=== PATIENT | female | born 1950 | race Caucasian/White ===

== ENCOUNTER 2022-11-07 22:42 | Inpatient (IN) | payer MEDICARE, OTHER ==
[2022-11-07 23:10] LABS: #Lymphocytes 1.1 thou/uL (1.20-3.40); #Monocytes 1.3 thou/uL (0.11-0.59); #Neutrophils 6.6 thou/uL (1.40-6.50); %Monocytes 14.3 % (0.0-10.0); %Neutrophils 73.7 % (42.0-75.0); Hemoglobin 14.8 g/dL (12.0-16.0); Mean Corpuscular HGB CONC 33.6 g/dL (32.0-36.0); Mean Corpuscular Hemoglobin 31.6 pg (27.0-31.0); Mean Corpuscular Volume 94.2 fl (78.0-98.0); Mean Platelet Volume 8.6 fL (7.4-10.4); Platelet Count 190 10x3/uL (130-400); RBC Distribution Width 13.7 % (11.5-14.5); Red Blood Cell (RBC) Count 4.67 mill/uL (4.20-5.40)
[2022-11-07] MEDS ORDERED: Ipratropium/Albuterol 3 ML NEB ONE (23:20)
[2022-11-07] MEDS ORDERED: Dexamethasone 10 MG/ML VIAL ONE (23:26)
[2022-11-07 23:33] LABS: ALT (SGPT) 14 U/L (8-55); AST (SGOT) 28 U/L (5-34); Albumin 3.8 g/dL (3.4-4.8); Alkaline Phosphatase 114 U/L (40-110); Anion Gap 22 mmol/L (10-20); BUN (Urea Nitrogen) 55 mg/dL (9.8-20.1); Bilirubin, Total 0.3 mg/dL (0.2-1.2); Calc. Creatinine Clearance 0 mL/min (70-130); Calcium 10.2 mg/dL (7.8-10.44); Carbon Dioxide 13 mmol/L (23-31); Chloride 102 mmol/L (98-107); Estimated GFR 50; Globulin 3.7 g/dL (2.4-3.5); Glucose 198 mg/dL (83-110); Potassium 4.3 mmol/L (3.5-5.1); Protein, Total 7.5 g/dL (5.8-8.1); Sodium 133 mmol/L (136-145)
[2022-11-08 00:14] LABS: SARS-CoV-2 NAA Rapid Test Not Detected (NotDetected)
[2022-11-08] MEDS ORDERED: cefTRIAXone\\ROCEPHIN 1 GM VIAL ONE (02:03)
[2022-11-08] MEDS: guaiFENesin ER 600 MG TAB PO SCH (02:06)
[2022-11-08] MEDS ORDERED: Ondansetron ODT 4 MG TAB SL PRN (02:15)
[2022-11-08] MEDS ORDERED: Ondansetron PF 4 MG/2 ML Vial IVP PRN (02:15)
[2022-11-08] MEDS ORDERED: Acetaminophen 325 MG TAB PO PRN (02:15)
[2022-11-08] MEDS ORDERED: Azithromycin 500 MG VIAL ONE (02:36)
[2022-11-08] MEDS ORDERED: Ipratropium/Albuterol 3 ML NEB NEB PRN (02:36)
[2022-11-08] MEDS ORDERED: Azithromycin 500 MG in Sodium Chloride 0.9% 250 ML 250 ML IVPB SCH (03:00)
[2022-11-08 03:39] LABS: Lactic Acid 1.4 mmol/L (0.5-2.2)
[2022-11-08] MEDS ORDERED: Dextrose 5% in Water 1,000 ML IV PRN (05:09)
[2022-11-08] MEDS ORDERED: HumaLOG 300 UNITS/3 ML VIAL SC PRN ×3 (05:09→11:30)
[2022-11-08] MEDS ORDERED: Dextrose 50% Abboject 50 ML SYRINGE SLOW IVP PRN (05:09)
[2022-11-08] MEDS ORDERED: Diltiazem 125 MG/25 ML ONE (05:43)
[2022-11-08] MEDS ORDERED: Metoprolol Tartrate 5 MG/5 ML VIAL ONE ×3 (05:45→06:24)
[2022-11-08] MEDS ORDERED: Metoprolol Tartrate 5 MG/5 ML VIAL IVP PRN (05:45)
[2022-11-08] MEDS ORDERED: Digoxin 0.5 MG/2 ML AMP ONE (05:53)
[2022-11-08] MEDS ORDERED: Digoxin 0.5 MG/2 ML AMP SLOW IVP SCH ×4 (05:55→06:02)
[2022-11-08] MEDS: Metoprolol Tartrate 5 MG/5 ML VIAL IVP PRN ×2 (06:05→06:15)
[2022-11-08 07:32] LABS: Troponin I Less than 0.010 ng/mL (< 0.028)
[2022-11-08 08:25] LABS: Hemoglobin 14.8 g/dL (12.0-16.0); Mean Corpuscular HGB CONC 33.4 g/dL (32.0-36.0); Mean Corpuscular Hemoglobin 32.5 pg (27.0-31.0); Mean Corpuscular Volume 97.4 fl (78.0-98.0); Platelet Count 207 10x3/uL (130-400); RBC Distribution Width 14.3 % (11.5-14.5); Red Blood Cell (RBC) Count 4.56 mill/uL (4.20-5.40); White Blood Cell (WBC) Count 13.1 10x3/uL (4.8-10.8)
[2022-11-08 08:49] LABS: BUN (Urea Nitrogen) 58 mg/dL (9.8-20.1); Calc. Creatinine Clearance 0 mL/min (70-130); Calcium 9.4 mg/dL (7.8-10.44); Chloride 105 mmol/L (98-107); Estimated GFR 43; Glucose 338 mg/dL (83-110); Magnesium 3.1 mg/dL (1.6-2.6); Potassium 5.4 mmol/L (3.5-5.1); Sodium 135 mmol/L (136-145)
[2022-11-08 08:49] LABS: Band 42 % (5-11); Lymphocytes 9 % (21-51); MDiff Complete? YES; Metamyelocyte 1 % (0-0); Monocytes 6 % (0-10); Myelocyte 3 % (0-0); Neutrophil 39 % (42-75); Platelet Morphology Comment Appears Adequate; RBC Morphology Normal
[2022-11-08 08:53] LABS: Carbon Dioxide Less than 8 mmol/L (23-31)
[2022-11-08] MEDS ORDERED: methylPREDNISolone Sod Succ 40 MG VIAL ONE (08:59)
[2022-11-08] MEDS ORDERED: HumaLOG 300 UNITS/3 ML VIAL ONE (08:59)
[2022-11-08] MEDS: methylPREDNISolone Sod Succ 40 MG VIAL IVP SCH (09:35)
[2022-11-08] MEDS ORDERED: Iopamidol-370 76% 500 ML 1 ML ONE (09:44)
[2022-11-08] MEDS ORDERED: Sodium Chloride 0.9% 1,000 ML IV SCH (10:15)
[2022-11-08] MEDS: HumaLOG 300 UNITS/3 ML VIAL SC PRN ×4 (13:05→23:16)
[2022-11-08] MEDS: Sodium Chloride 0.9% 1,000 ML IV SCH ×2 (14:03→23:44)
[2022-11-08 15:18] LABS: Anion Gap 21 mmol/L (10-20); BUN (Urea Nitrogen) 52 mg/dL (9.8-20.1); Calc. Creatinine Clearance 0 mL/min (70-130); Calcium 9.6 mg/dL (7.8-10.44); Carbon Dioxide 10 mmol/L (23-31); Chloride 108 mmol/L (98-107); Estimated GFR 44; Glucose 321 mg/dL (83-110); Potassium 4.5 mmol/L (3.5-5.1); Sodium 134 mmol/L (136-145)
[2022-11-08 15:43] VITALS: BMI 29.9
[2022-11-08 18:28] LABS: Anion Gap 17 mmol/L (10-20); BUN (Urea Nitrogen) 45 mg/dL (9.8-20.1); Calc. Creatinine Clearance 60 mL/min (70-130); Calcium 9.3 mg/dL (7.8-10.44); Carbon Dioxide 12 mmol/L (23-31); Chloride 114 mmol/L (98-107); Estimated GFR 65; Glucose 156 mg/dL (83-110); Potassium 4.2 mmol/L (3.5-5.1); Sodium 139 mmol/L (136-145)
[2022-11-08] MEDS: Guaifenesin DM 100-10/5 ML UDCUP PO PRN (21:26)
[2022-11-08 21:33] LABS: Anion Gap 18 mmol/L (10-20); BUN (Urea Nitrogen) 41 mg/dL (9.8-20.1); Calc. Creatinine Clearance 57 mL/min (70-130); Calcium 9.3 mg/dL (7.8-10.44); Carbon Dioxide 10 mmol/L (23-31); Chloride 112 mmol/L (98-107); Estimated GFR 61; Glucose 225 mg/dL (83-110); Potassium 4.3 mmol/L (3.5-5.1); Sodium 136 mmol/L (136-145)
[2022-11-08] MEDS ORDERED: Sodium Chloride 0.9% 1,000 ML IV PRN ×4 (22:33)
[2022-11-08] MEDS ORDERED: NS 0.9% w/ 20 MEQ KCL 1,000 ML IV PRN ×2 (22:33)
[2022-11-08] MEDS ORDERED: Dextrose 5 %-0.45 % NaCl 1,000 ML IV PRN (22:33)
[2022-11-08] MEDS ORDERED: Electrolyte Replacement Protocol 1 EACH IVPB PRN (22:33)
[2022-11-08] MEDS ORDERED: HUMULIN R 100 UNITS in Sodium Chloride 0.9% 100 ML IVPB SCH (22:45)
[2022-11-08] MEDS: Ipratropium/Albuterol 3 ML NEB NEB PRN (23:32)
[2022-11-08] MEDS: D5 1/2 NS w/20 mEq KCL 1,000 ML IV PRN (23:44)
[2022-11-08 23:48] LABS: Glucose 210 mg/dL (83-110)
[2022-11-08 23:52] LABS: Anion Gap 17 mmol/L (10-20); BUN (Urea Nitrogen) 38 mg/dL (9.8-20.1); Calc. Creatinine Clearance 67 mL/min (70-130); Calcium 8.9 mg/dL (7.8-10.44); Carbon Dioxide 14 mmol/L (23-31); Chloride 111 mmol/L (98-107); Estimated GFR 73; Glucose 211 mg/dL (83-110); Sodium 138 mmol/L (136-145)
[2022-11-09] MEDS ORDERED: cefTRIAXone\\ROCEPHIN 1 GM in Sodium Chloride 0.9% 100 ML IVPB SCH (02:00)
[2022-11-09] MEDS: D5 1/2 NS w/20 mEq KCL 1,000 ML IV PRN (03:49)
[2022-11-09] MEDS: Guaifenesin DM 100-10/5 ML UDCUP PO PRN ×3 (03:51→17:58)
[2022-11-09 04:45] LABS: Anion Gap 14 mmol/L (10-20); BUN (Urea Nitrogen) 27 mg/dL (9.8-20.1); Calc. Creatinine Clearance 74 mL/min (70-130); Calcium 8.4 mg/dL (7.8-10.44); Carbon Dioxide 17 mmol/L (23-31); Chloride 112 mmol/L (98-107); Estimated GFR 84; Glucose 214 mg/dL (83-110); Potassium 3.5 mmol/L (3.5-5.1); Sodium 139 mmol/L (136-145)
[2022-11-09 04:50] LABS: Anion Gap 15 mmol/L (10-20); BUN (Urea Nitrogen) 27 mg/dL (9.8-20.1); Calc. Creatinine Clearance 74 mL/min (70-130); Calcium 8.4 mg/dL (7.8-10.44); Carbon Dioxide 15 mmol/L (23-31); Chloride 113 mmol/L (98-107); Estimated GFR 84; Glucose 214 mg/dL (83-110); Potassium 3.6 mmol/L (3.5-5.1); Sodium 139 mmol/L (136-145)
[2022-11-09 07:08] LABS: Anion Gap 11 mmol/L (10-20); BUN (Urea Nitrogen) 23 mg/dL (9.8-20.1); Calc. Creatinine Clearance 82 mL/min (70-130); Calcium 8.3 mg/dL (7.8-10.44); Carbon Dioxide 18 mmol/L (23-31); Chloride 114 mmol/L (98-107); Estimated GFR 91; Glucose 193 mg/dL (83-110); Potassium 3.5 mmol/L (3.5-5.1); Sodium 139 mmol/L (136-145)
[2022-11-09] MEDS: Sodium Chloride 0.9% 1,000 ML IV SCH (07:30)
[2022-11-09] MEDS: Ipratropium/Albuterol 3 ML NEB NEB PRN ×2 (08:04→12:43)
[2022-11-09] MEDS ORDERED: FLU VACC QS2022-23(65YR UP)/PF 240 MCG/0.7 ML SYRINGE IM ONE (09:00)
[2022-11-09] MEDS ORDERED: Potassium Chloride 20 MEQ TAB PO SCH (09:00)
[2022-11-09] MEDS ORDERED: HumaLOG 300 UNITS/3 ML VIAL SC PRN (09:28)
[2022-11-09] MEDS ORDERED: Dextrose 50% Abboject 50 ML SYRINGE SLOW IVP PRN (09:28)
[2022-11-09] MEDS ORDERED: Dextrose 5% in Water 1,000 ML IV PRN (09:28)
[2022-11-09] MEDS: methylPREDNISolone Sod Succ 40 MG VIAL IVP SCH (09:28)
[2022-11-09] MEDS ORDERED: Insulin Glargine 30 UNITS/0.3 ML VIAL SC SCH (09:45)
[2022-11-09] MEDS: guaiFENesin ER 600 MG TAB PO SCH (10:35)
[2022-11-09] MEDS ORDERED: guaiFENesin/DM ER PO SCH (10:45)
[2022-11-09] MEDS ORDERED: Benzonatate 100 MG CAP PO PRN (12:56)
[2022-11-09] MEDS: HumaLOG 300 UNITS/3 ML VIAL SC PRN ×2 (17:59→21:41)
[2022-11-09] MEDS ORDERED: Ipratropium/Albuterol 3 ML NEB NEB PRN (20:00)
[2022-11-09] MEDS: guaiFENesin/DM ER PO SCH (21:39)
[2022-11-09] MEDS: Atorvastatin Calcium 10 MG TAB PO SCH (21:39)
[2022-11-09] MEDS: cefTRIAXone\\ROCEPHIN 1 GM in Sodium Chloride 0.9% 100 ML IVPB SCH (21:39)
[2022-11-09] MEDS: Insulin Glargine 30 UNITS/0.3 ML VIAL SC SCH (21:40)
[2022-11-09] MEDS: Ipratropium/Albuterol 3 ML NEB NEB SCH (23:52)
[2022-11-10 03:48] LABS: Anion Gap 15 mmol/L (10-20); BUN (Urea Nitrogen) 15 mg/dL (9.8-20.1); Calc. Creatinine Clearance 91 mL/min (70-130); Calcium 8.9 mg/dL (7.8-10.44); Carbon Dioxide 17 mmol/L (23-31); Chloride 112 mmol/L (98-107); Estimated GFR 94; Glucose 172 mg/dL (83-110); Potassium 4.4 mmol/L (3.5-5.1); Sodium 140 mmol/L (136-145)
[2022-11-10] MEDS: HumaLOG 300 UNITS/3 ML VIAL SC PRN ×3 (05:59→16:19)
[2022-11-10] MEDS: Ipratropium/Albuterol 3 ML NEB NEB SCH ×4 (06:38→23:37)
[2022-11-10] MEDS ORDERED: predniSONE 20 MG TAB PO SCH (08:00)
[2022-11-10] MEDS: guaiFENesin/DM ER PO SCH ×2 (08:17→20:42)
[2022-11-10] MEDS: Lisinopril 5 MG TAB PO SCH (08:17)
[2022-11-10] MEDS: Atorvastatin Calcium 10 MG TAB PO SCH (20:42)
[2022-11-10] MEDS: cefTRIAXone\\ROCEPHIN 1 GM in Sodium Chloride 0.9% 100 ML IVPB SCH (20:42)
[2022-11-10] MEDS: Apixaban 5 MG TAB PO SCH (20:42)
[2022-11-10] MEDS: Insulin Glargine 30 UNITS/0.3 ML VIAL SC SCH (20:57)
[2022-11-11 05:25] LABS: Anion Gap 16 mmol/L (10-20); BUN (Urea Nitrogen) 16 mg/dL (9.8-20.1); Calc. Creatinine Clearance 91 mL/min (70-130); Calcium 8.8 mg/dL (7.8-10.44); Carbon Dioxide 20 mmol/L (23-31); Chloride 107 mmol/L (98-107); Estimated GFR 95; Glucose 257 mg/dL (83-110); Magnesium 2.1 mg/dL (1.6-2.6); Potassium 3.5 mmol/L (3.5-5.1); Sodium 139 mmol/L (136-145)
[2022-11-11] MEDS: Ipratropium/Albuterol 3 ML NEB NEB SCH ×4 (07:03→23:16)
[2022-11-11] MEDS ORDERED: Potassium Chloride 20 MEQ TAB PO SCH (08:00)
[2022-11-11] MEDS: guaiFENesin/DM ER PO SCH ×2 (09:31→21:26)
[2022-11-11] MEDS: Benzonatate 100 MG CAP PO SCH ×3 (09:31→21:36)
[2022-11-11] MEDS: predniSONE 20 MG TAB PO SCH (09:32)
[2022-11-11] MEDS: Apixaban 5 MG TAB PO SCH ×2 (09:32→21:26)
[2022-11-11] MEDS: Lisinopril 5 MG TAB PO SCH (09:32)
[2022-11-11] MEDS: HumaLOG 300 UNITS/3 ML VIAL SC PRN ×2 (11:14→17:48)
[2022-11-11] MEDS: cefTRIAXone\\ROCEPHIN 1 GM in Sodium Chloride 0.9% 100 ML IVPB SCH (21:25)
[2022-11-11] MEDS: Insulin Glargine 30 UNITS/0.3 ML VIAL SC SCH (21:25)
[2022-11-11] MEDS: Atorvastatin Calcium 10 MG TAB PO SCH (21:26)
[2022-11-12 04:26] LABS: Anion Gap 14 mmol/L (10-20); BUN (Urea Nitrogen) 15 mg/dL (9.8-20.1); Calc. Creatinine Clearance 109 mL/min (70-130); Calcium 9.1 mg/dL (7.8-10.44); Carbon Dioxide 22 mmol/L (23-31); Chloride 107 mmol/L (98-107); Estimated GFR 99; Glucose 188 mg/dL (83-110); Potassium 3.7 mmol/L (3.5-5.1); Sodium 139 mmol/L (136-145)
[2022-11-12 04:29] LABS: Band 3 % (5-11); Hemoglobin 12.4 g/dL (12.0-16.0); Lymphocytes 19 % (21-51); MDiff Complete? YES; Mean Corpuscular HGB CONC 35.1 g/dL (32.0-36.0); Mean Corpuscular Hemoglobin 33.2 pg (27.0-31.0); Mean Corpuscular Volume 94.5 fl (78.0-98.0); Mean Platelet Volume 8.7 fL (7.4-10.4); Metamyelocyte 2 % (0-0); Monocytes 8 % (0-10); Myelocyte 1 % (0-0); Neutrophil 67 % (42-75); Platelet Count 216 10x3/uL (130-400); Platelet Morphology Comment Appears Adequate; Polychromasia SLIGHT = 2-3 cells (100X) (0-2/hpf); RBC Distribution Width 13.9 % (11.5-14.5); Red Blood Cell (RBC) Count 3.73 mill/uL (4.20-5.40); White Blood Cell (WBC) Count 9.1 10x3/uL (4.8-10.8)
[2022-11-12] MEDS: Ipratropium/Albuterol 3 ML NEB NEB SCH (07:34)
[2022-11-12] MEDS ORDERED: Lisinopril 10 MG TAB PO SCH (09:00)
[2022-11-12] MEDS ORDERED: Multivit, Therapeutic 1 TAB PO SCH (09:00)
[2022-11-12] MEDS ORDERED: Insulin Glargine 30 UNITS/0.3 ML VIAL SC SCH (09:00)
[2022-11-12] MEDS ORDERED: Empagliflozin 10 MG TAB PO SCH (09:00)
[2022-11-12] MEDS ORDERED: Diltiazem HCl CD 300 mg Capsule PO SCH (09:00)
[2022-11-12 09:13] VITALS: BP 131/61; TEMP 97.8
[2022-11-12] MEDS: Apixaban 5 MG TAB PO SCH (09:42)
[2022-11-12] MEDS: predniSONE 20 MG TAB PO SCH (09:42)
[2022-11-12] MEDS: Benzonatate 100 MG CAP PO SCH (09:43)
[2022-11-12] MEDS: guaiFENesin/DM ER PO SCH (09:43)
== END 2022-11-12 10:11 | disposition home or self-care (01) | DRG 871 ==
LOC: ERS 22:42 → ERHOLD 11-08 02:05 → OBSVTOIN 11-08 02:05 → 2NO 11-08 15:14 → IMCU/EMU 11-08 23:47 → 2NO 11-10 18:49
PROVIDERS: ADMIT Student in an Organized Health Care Education/Training Program; ATTEND Hospitalist
DX: A41.9 Sepsis, unspecified organism (principal); E11.10 Type 2 diabetes mellitus with ketoacidosis without coma; J15.9 Unspecified bacterial pneumonia; J96.01 Acute respiratory failure with hypoxia; J45.901 Unspecified asthma with (acute) exacerbation; E87.1 Hypo-osmolality and hyponatremia; I10 Essential (primary) hypertension; Z20.822 Contact with and (suspected) exposure to COVID-19; I48.91 Unspecified atrial fibrillation; E66.9 Obesity, unspecified; I48.0 Paroxysmal atrial fibrillation; J02.0 Streptococcal pharyngitis; E78.00 Pure hypercholesterolemia, unspecified; Z88.8 Allergy status to other drugs, medicaments and biological substances; Z88.2 Allergy status to sulfonamides; Z68.30 Body mass index [BMI] 30.0-30.9, adult
CPT/HCPCS: 36415; 36416; 71045; 71275; 80048; 80053; 82010; 83036; 83605; 83735; 83880; 84145; 84484; 85025; 86140; 87040; 93005; 93306; 94640; 96361; 96365; 96375; J0456; J0696; J1100; J1160; J1650; J1815; J2920; J3480; J3490; J7050; J7512; J7620; Q9967